=== PATIENT | female | born 1980 | race Two or more races ===

== ENCOUNTER 2024-06-15 09:34 | Emergency (ER) | payer OTHER ==
[~2024-06-15] VITALS: Ht 172.7 cm; Wt 88.6 kg
[2024-06-15 09:58] VITALS: TEMP 98.4
[2024-06-15] MEDS: IBUPROFEN 600 MG TABLET PO ONE (13:57)
[2024-06-15] MEDS: LIDOCAINE 5% TRANSDERMAL PATCH TD ONE (13:57)
[2024-06-15 13:58] VITALS: BP 119/71; PULSE 79; RESP 15; O2SAT 98
== END 2024-06-15 14:24 | disposition home or self-care (01) ==
LOC: EMS 09:34
DX: S46.912A Strain of unspecified muscle, fascia and tendon at shoulder and upper arm level, left arm, initial encounter (principal); S00.01XA Abrasion of scalp, initial encounter; R07.89 Other chest pain; Z98.890 Other specified postprocedural states; W01.0XXA Fall on same level from slipping, tripping and stumbling without subsequent striking against object, initial encounter; Y93.89 Activity, other specified; Y92.89 Other specified places as the place of occurrence of the external cause; Y99.8 Other external cause status
CPT/HCPCS: 70450; 71045; 72125; 84703; 99284; 36415-L1; 36415-TC